=== PATIENT | male | born 1970 | race Caucasian/White ===

== ENCOUNTER → 2017-03-22 | Outpatient (CLI) | payer OTHER ==
[~2017-03-22] MED LIST: GLC500 PO; LPR25 PO; LPT40 PO; LSN5 PO; NTRSLP4 SL; PLV75 PO; Vitamin B 12 PO; WARF5TAB7 PO
--- NOTE | 2017-03-22 16:34 | DIAGNOSTIC IMAGING REPORT ---
(CHEST) THORAX WITHOUT CLINICAL HISTORY: 47 years-old Male presenting with PULMONARY NODULE, two 4 mm indeterminate pulmonary nodules in the lower lobes. TECHNIQUE: Multidetector CT imaging of the chest was performed without the use of intravenous contrast. IV contrast: None. A dose lowering technique was used consistent with the principles of ALARA (as low as reasonably achievable). COMPARISON: 02/06/2016. CT DOSE (mGy.cm): The estimated cumulative dose is 1628.43 mGy.cm. FINDINGS: Transition Coach topogram: Unremarkable. On soft tissue windows, gynecomastia bilaterally, greater on the right. Normal thyroid. No axillary, supraclavicular, or mediastinal lymphadenopathy. Evaluation of the ekaterina limited without intravenous contrast. Normal aorta. Coronary artery calcification. Normal heart size. No pericardial or pleural effusion. Hepatic steatosis. Artifact mildly degrades evaluation of the upper abdomen. On lung windows, stable solid 4 mm nodule in the left lower lobe (series 4 image 183). Stable solid 4 mm nodule in the right lower lobe (series 4 image 164). Fissural nodularity in the right middle lobe unchanged (series 4 images 108 and 106) disease. Multiple additional right middle lobe nodules measuring 2 to 3 mm, unchanged. Solid peripheral/subpleural 6 mm nodule in the superior segment of the left lower lobe (series 4 image 130), unchanged. No commencing evidence of a new pulmonary nodule. Airways patent. On bone windows, mild degenerative changes of the thoracic spine. Cystic change in the inferior aspect of the right glenoid fossa likely degenerative in etiology. IMPRESSION: 1. Multiple solid bilateral pulmonary nodules stable since prior exam in February 06, 2016. The largest measures 6 mm in the left lower lobe. Follow-up per [employer] 2017 recommendations below. 2. Hepatic steatosis. Please refer to below summary of Fleischner Society 2017 recommendations for follow-up of incidental CT nodules (H Julian, et al. Guidelines for management of incidental pulmonary nodules detected on CT images: From the Fleischner Society 2017. Radiology 2017; 284: 228-243.) SOLID NODULES Single nodule; size < 6 mm * Low risk patients: No routine follow-up * High risk patients: Optional CT at 12 months Single nodule; size 6-8 mm * Low risk patients: CT at 6-12 months, then consider CT at 18-24 months * High risk patients: CT at 6-12 months, then at 18-24 months Single nodule; size > 8 mm * Either low or high risk patients: Considered CT at 3 months, PET/CT, or tissue sampling Multiple nodules; size < 6 mm * Low risk patients: No routine follow up * High risk patients: Optional CT at 12 months Multiple nodules; size 6-8 mm * Low risk patients: CT at 3-6 months, then consider CT at 18-24 months * High risk patients: CT at 3-6 months, then at 18-24 months Multiple nodules; size > 8 mm * Low risk patients: CT at 3-6 months, then consider at 18-24 months * High risk patients: CT at 3-6 months, then at 18-24 months Note: These guidelines apply to incidental nodules. These guidelines do not apply to patients younger than 35 years, immunocompromised patients, or patients with cancer. * Low risk patients: Minimal or absent history of smoking and/or other known risk factors * High risk patients: History of smoking, exposure to other carcinogens, emphysema, fibrosis, upper lobe location, family history of lung cancer, etc. * If a nodule up to 8 mm is partly solid or is ground glass, further follow-up is required after 24 months to exclude possible slow growing adenocarcinoma. SUBSOLID NODULES Single ground-glass nodule * Nodule size < 6 mm: No routine follow-up * Nodule size > or = 6 mm: CT at 6-12 months to confirm persistence, then CT every 2 years until 5 years Single part-solid nodule * Nodule size < 6 mm: No routine follow-up * Nodules size > or = 6 mm: CT at 3-6 months to confirm persistence. If unchanged and solid component remains < 6 mm, annual CT should be performed for 5 years Multiple nodules * Nodule size < 6 mm: CT at 3-6 months. If stable, consider CT at 2 and 4 years. * Nodules size > or = 6 mm: CT at 3-6 months. Subsequent management based on the most suspicious nodule(s) Electronically signed by: Johnny Phelps M.D. 03/22/2017 4:33 PM Dictated Date/Time: 03/22/2017 4:25 PM
== END | disposition home or self-care (01) ==
LOC: C.CTS 15:44
PROVIDERS: ATTEND Nurse Practitioner Adult Health
DX: R91.8 Other nonspecific abnormal finding of lung field (principal)

== ENCOUNTER → 2017-11-27 | Outpatient (CLI) | payer OTHER ==
[~2017-11-27] MED LIST changes: +LISI-730 PO; -LSN5 PO
[2017-11-27 09:58] LABS: BASO % 0.3 %; BASO ABS # 0.02 K/uL (0-0.2); EOS % 2.6 %; HEMOGLOBIN 14.8 g/dL (14.0-18.0); IG# 0.05 K/uL (0.00-0.02); LYMPH % 28.7 %; LYMPH ABS # 2.24 K/uL (1.2-3.4); MEAN CELL VOLUME 83.7 fL (80-100); MEAN CORPUSCULAR HEMOGLOBIN 29.5 pg (25-34); MEAN CORPUSCULAR HGB CONC 35.2 g/dl (32-36); MEAN PLATELET VOLUME 8.9 fL (7.4-10.4); MONO % 6.8 %; MONO ABS # 0.53 K/uL (0.11-0.59); NEUT ABS # 4.76 K/uL (1.4-6.5); PLATELET COUNT 219 K/uL (130-400); RED CELL DISTRIBUTION WIDTH SD 38.9 fL (36.4-46.3)
[2017-11-27 10:27] LABS: ALBUMIN 3.1 gm/dl (3.4-5.0); ALKALINE PHOSPHATASE 92 U/L (45-117); ALT/SGPT 35 U/L (12-78); AST/SGOT 27 U/L (15-37); BLOOD UREA NITROGEN 11 mg/dl (7-18); CALCIUM 8.1 mg/dl (8.5-10.1); CARBON DIOXIDE 26 mmol/L (21-32); CHOLESTEROL 214 mg/dl (0-200); CREATININE 0.81 mg/dl (0.60-1.40); GLUCOSE 314 mg/dl (70-99); LDL CHOLESTEROL CALCULATED 123 mg/dl; POTASSIUM 3.9 mmol/L (3.5-5.1); SODIUM 134 mmol/L (136-145); TOTAL PROTEIN 7.2 gm/dl (6.4-8.2)
[2017-11-27 11:50] LABS: HEMOGLOBIN A1C 12.6 % (4.5-5.6)
== END | disposition home or self-care (01) ==
LOC: C.LAB 09:37
PROVIDERS: ATTEND Nurse Practitioner Adult Health
DX: E11.9 Type 2 diabetes mellitus without complications (principal); K76.0 Fatty (change of) liver, not elsewhere classified; E78.5 Hyperlipidemia, unspecified; Z79.01 Long term (current) use of anticoagulants